=== PATIENT | female | born 1965 | race Caucasian/White ===

== ENCOUNTER 2025-02-28 14:07 | Emergency (ER) | payer OTHER, SELFPAY ==
--- NOTE | ~2025-02-28 | CT_ITS ---
EXAMINATION: CT abdomen pelvis wo con DATE: 02/28/2025 17:15 INDICATION: Flank pain. History of nephrolithiasis. TECHNIQUE: Computed tomography (CT) of the abdomen and pelvis was performed without intravenous contrast. Automated exposure control and iterative reconstruction technique were employed. The dose-length product was 1087.74 mGy-cm. COMPARISON: [facility] dated 07/14/2018. CT dated 07/14/2018. FINDINGS: Lung bases do not show acute findings. Hiatus hernia. Gallbladder is absent. Pancreas shows no acute findings. No calculi or obstruction on the left side. Mild right hydronephrosis. No stone is noted in the right ureter. No evidence of bladder calculus. No inflammatory changes in the pelvis. Significant degenerative disc disease at L5-S1 level. IMPRESSION: 1. Limited noncontrast study is not optimal to evaluate solid viscera, neoplasms and vascular structures. 2. Mild right hydronephrosis and hydroureter. No calculi are seen within the urinary tract and this time. 3. Significant degenerative disc disease at L5-S1 level. Reviewed, dictated and finalized at location T. NTEER SERVICES DIRECTOR IMPRESSION: 1. Limited noncontrast study is not optimal to evaluate solid viscera, neoplasm s and vascular structures. 2. Mild right hydronephrosis and hydroureter. No calculi are seen within the ur inary tract and this time. 3. Significant degenerative disc disease at L5-S1 level.
--- NOTE | ~2025-02-28 | XR_ITS ---
EXAMINATION: XR chest 2V DATE: 02/28/2025 15:00 INDICATION: Chest pain. TECHNIQUE: Frontal and lateral views of the chest were obtained. COMPARISON: None. FINDINGS: Moderate cardiomegaly. Significant atherosclerotic aorta. Lungs are free of acute processes. IMPRESSION: 1. No acute findings. Cardiomegaly and atherosclerotic aorta. Reviewed, dictated and finalized at location T. SIOLOGIST
--- NOTE | ~2025-02-28 | CT_ITS ---
EXAMINATION: CT angiogram chest, abdomen and pelvis with contrast: DATE: 02/28/2025. INDICATION: 59-year-old female with acute onset of chest pain. Rule out dissection. TECHNIQUE: The angiogram of chest, abdomen and pelvis with 150 cc of Omnipaque 350. Multiplanar and 3-D reconstruction obtained. Radiation dose 795 MG Y C.M. COMPARISON: CT abdomen pelvis dated 02/28/2025 without contrast. Chest x-ray dated 02/28/2025. FINDINGS: No significant acute pulmonary findings. Minimal platelike atelectasis of left lung base. No evidence of pulmonary emboli. No acute findings of thoracic aorta. Atherosclerotic changes of aortic arch. Below the diaphragm, no evidence of abdominal aortic dissection. Mild ectasia of infrarenal abdominal aorta measuring 2.5 cm in AP diameter. Significant calcific atherosclerotic changes of distal abdominal aorta and proximal iliac arteries. No evidence of aortic dissection. No evidence of small bowel obstruction. No acute findings of thoracolumbar spine. IMPRESSION: 1. No evidence of pulmonary emboli. Minimal platelike atelectasis of left lung base. 2. Atherosclerotic changes of thoracic aorta. No evidence of thoracic aortic dissection. 3. No evidence of abdominal aortic dissection. Mild ectasia of infrarenal abdominal aorta measuring 2.5 cm in AP diameter. 4. Significant calcific atherosclerotic changes of distal abdominal aorta and bilateral iliac arteries. 5 degenerative disc disease at L5-S1 level. Reviewed, dictated and finalized at location T. ETIC ACCOUNT COORDINATOR IMPRESSION: 1. No evidence of pulmonary emboli. Minimal platelike atelectasis of left lung base. 2. Atherosclerotic changes of thoracic aorta. No evidence of thoracic aortic di ssection. 3. No evidence of abdominal aortic dissection. Mild ectasia of infrarenal abdom inal aorta measuring 2.5 cm in AP diameter. 4. Significant calcific atherosclerotic changes of distal abdominal aorta and b ilateral iliac arteries. 5 degenerative disc disease at L5-S1 level.
[2025-02-28 14:07] VITALS: BP 130/74; PULSE 87; RESP 14; TEMP 36.8; O2SAT 92
--- NOTE | 2025-02-28 14:13 | ECG_ITS ---
Test Date: 2025-02-28 14:19:22 Measurements Intervals [place] Rate: 87 P: 45 PA: 154 QRS: -44 QRSD: 100 T: 84 QT: 331 QTc: 400 Interpretive Statements SINUS RHYTHM LEFT AXIS DEVIATION DELAYED PRECORDIAL R/S TRANSITION LEFT VENTRICULAR HYPERTROPHY AND ST-T CHANGE MINIMAL Q WAVES- HIGH LATERAL LEADS BASELINE ARTIFACT- I, II, III, AVR, AVL, AVF, V1 BORDERLINE ECG No previous ECG available for comparison Electronically Signed On 02-28-2025 21:37:17 VFX ARTIST by Fer Schrader D.O.
[2025-02-28 14:27] LABS: Hematocrit 41.0 % (37.0-47.0); Hemoglobin 13.2 g/dL (12.0-15.0); Immature Granulocyte Percent A 0.5 % (0-0.5); Lymphocytes Absolute Auto 2.28 K/mm3 (0.9-3.2); Mean Corpuscular HGB Conc 32.2 g/dl (32-36); Mean Corpuscular Hemoglobin 28.3 pg (26-34); Mean Corpuscular Volume 88.0 fl (80-100); Nucleated Red Blood Cells Absolute Auto 0.000 K/mm3 (0.0-0.012); Nucleated Red Blood Cells Perc 0.0 % (0.0-0.2); Platelet Count Result 168 k/mm3 (150-375); Red Blood Count 4.66 M/mm3 (4.2-5.4); White Blood Count 8.5 K/mm3 (4.5-10.0)
[2025-02-28 14:44] LABS: INR 1.0; Partial Thromboplastin Time 24.7 Seconds (22.3-36.8); Prothrombin Time 12.8 Seconds (11.1-14.7)
[2025-02-28 14:47] LABS: Alanine Aminotransferase 21 U/L (6-35); Albumin Level 4.4 g/dL (3.5-5.1); Alkaline Phosphatase 79 U/L (38-126); Anion Gap 6 mmol/L (4-12); Aspartate Amino Transferase 32 U/L (14-36); Bilirubin,Total 0.4 mg/dL (0.2-1.3); Blood Urea Nitrogen 13 mg/dL (7-17); Calcium 9.5 mg/dL (8.4-10.2); Carbon Dioxide 28 mmol/L (22-30); Chloride 103 mmol/L (98-107); Estimated CRCL calculation 76 ml/min; Estimated Glomerular Filt Rate > 60; Glucose 125 mg/dL (65-110); Lipase 76 U/L (23-300); Potassium 3.8 mmol/L (3.4-5.0); Sodium 137 mmol/L (137-145); Total Protein 7.8 g/dL (6.3-8.2)
[2025-02-28 14:54] LABS: Troponin I < 0.012 ng/mL (0.000-0.034)
--- NOTE | 2025-02-28 15:41 | ED_ITS ---
HPI - Chest Pain General Chief Complaint: Chest Pain Stated Complaint: chest pain Time Seen by Provider: 02/28/25 15:40 History of Present Illness HPI narrative: 59-year-old female presents emergency department with left-sided flank and chest pain. Patient states she has felt like this in the past when she has had a kidney stone. She has required urological intervention in the past. States was abrupt onset about 1 p.m.. No shortness of breath. States it radiates to her chest wall. Sources nausea but no vomiting. Denies any lateralizing weakness or paresthesias. Denies any known history of coronary artery disease or structural heart disease. The dorsum increased urinary frequency. States the pain is severe. Related Data Allergies Allergy/AdvReac Type Severity Reaction Status Date / Time No Known Allergies Allergy Unverified 07/14/18 22:39 Review of Systems 2 Review of Systems: All systems reviewed & are unremarkable except as noted in HPI and below Exam 2 Narrative: EXAMINATION OF ORGAN SYSTEMS/BODY AREAS: Constitutional: Vital signs per nursing GENERAL:[No acute distress, non-toxic appearing.] HEAD: Normal with no signs of head trauma. EYES: EOMI, conjunctiva normal ENT: Hearing grossly intact LUNGS: Nonlabored breathing. clear to auscultation bilaterally HEART: [Regular rate and rhythm] 2+ radial pulses brisk cap refill no murmur appreciated ABD: [Soft], [nontender to palpation] There is reproducible left flank tenderness no overlying skin changes. EXT: Normal range of motion SKIN: [No rashes or lesions.] NEURO: [Alert. No gross focal sensory or strength deficits.] PSYCH: Normal affect Course Vital Signs Vital signs: Vital Signs Temperature 36.8 C 02/28/25 14:07 Pulse Rate 87 02/28/25 14:07 Respiratory Rate 14 02/28/25 14:07 Blood Pressure 130/74 02/28/25 14:07 Pulse Oximetry 92 02/28/25 14:07 Oxygen Delivery Room Air 02/28/25 14:07 Temperature 36.8 C 02/28/25 14:07 Pulse Rate 79 02/28/25 17:30 Respiratory Rate 14 02/28/25 17:30 Blood Pressure 105/55 L 02/28/25 17:30 Pulse Oximetry 92 02/28/25 17:30 Oxygen Delivery Room Air 02/28/25 17:31 MDM Differential Diagnosis Differential Diagnosis: this is a 59-year-old female who presents with flank and chest pain. The differential is renal colic with or without obstruction versus atypical presentation of ACS versus peripheral pneumonia versus musculoskeletal etiology versus early zoster. Will obtain IV access CT abdomen pelvis without IV contrast urinalysis EKG chest x-ray multimodal pain control implant for evaluation of workup and treatment. Results re-evaluation Patient's clinical status improved. Her pain is controlled she states that this did happen before going to the CT scan without IV contrast. I suspect she perhaps passed a kidney stone however UA shows no evidence of RBCs given dissection is on the differential did obtain a CTA which was negative for dissection patient would like to go home she has been in the emergency department for extended period time her pain is improved I discussed with her that the hydronephrosis of unclear etiology could be related to a passed stone or other etiologies and she will require follow-up with her primary care doctor established urologist which she is confident she can obtain later this week. A tractor she is return immediately if she develops any new or concerning symptoms otherwise all questions answered discharged in fair condition Medical Records I have reviewed the following patient records and this information was taken into consideration when formulating the assessment and plan.: previous ER visits and previous hospitalizations Lab Data [facility] Lab Attestation statement: I personally reviewed the patient's lab results. 02/28/25 14:21 02/28/25 14:21 Labs: Lab Results 02/28/25 02/28/25 02/28/25 Range/Units 14:21 17:41 18:41 WBC 8.5 (4.5-10.0) K/mm3 RBC 4.66 (4.2-5.4) M/mm3 Hgb 13.2 (12.0-15.0) g/dL Hct 41.0 (37.0-47.0) % MCV 88.0 (80-100) fl MCH 28.3 (26-34) pg MCHC 32.2 (32-36) g/dl RDW 13.2 (11.5-14.5) % Plt Count 168 (150-375) k/mm3 MPV 10.5 H (7.4-10.4) fl Immature Gran % (Auto) 0.5 (0-0.5) % Neut % (Auto) 59.6 (45.5-73.1) % Lymph % (Auto) 27.0 (18.3-44.2) % Foster % (Auto) 9.8 H (2.6-8.5) % Eos % (Auto) 2.6 (0-4.4) % Baso % (Auto) 0.5 (0.2-1.2) % Lymph # (Auto) 2.28 (0.9-3.2) K/mm3 Foster # (Auto) 0.8 H (0.1-0.6) K/mm3 Eos # (Auto) 0.2 (0-0.3) K/mm3 Baso # (Auto) 0.0 (0.0-0.1) K/mm3 Abs Immat Gran (auto) 0.04 H (0.00-0.031) K/mm3 Absolute Neuts (auto) 5.1 (1.3-6.7) K/mm3 Absolute Nucleated RBC 0.000 (0.0-0.012) K/mm3 Nucleated RBC % 0.0 (0.0-0.2) % PT 12.8 (11.1-14.7) Seconds INR 1.0 APTT 24.7 (22.3-36.8) Seconds Sodium 137 (137-145) mmol/L Potassium 3.8 (3.4-5.0) mmol/L Chloride 103 (98-107) mmol/L Carbon Dioxide 28 (22-30) mmol/L Anion Gap 6 (4-12) mmol/L BUN 13 (7-17) mg/dL Creatinine 0.83 (0.7-1.0) mg/dL Estim Creat Clear Calc 76 ml/min Estimated GFR > 60 (59 - ) Glucose 125 H (65-110) mg/dL Calcium 9.5 (8.4-10.2) mg/dL Total Bilirubin 0.4 (0.2-1.3) mg/dL AST 32 (14-36) U/L ALT 21 (6-35) U/L Alkaline Phosphatase 79 (38-126) U/L Troponin I < 0.012 < 0.012 (0.000-0.034) ng/mL Total Protein 7.8 (6.3-8.2) g/dL Albumin 4.4 (3.5-5.1) g/dL Lipase 76 (23-300) U/L Urine Color Yellow (Yellow) Urine Appearance Cloudy H (Clear) Urine pH 6.0 (5.0-9.0) Ur Specific [place] 1.037 H (1.001-1.035) Urine Protein Negative (Negative) mg/dL Urine Glucose (UA) 3+ H (Negative) mg/dL Urine Ketones Trace H (Negative) mg/dL Ur Blood (Man) Negative (Negative) Urine Nitrate Negative (Negative) Urine Bilirubin Negative (Negative) Urine Urobilinogen 0.2 (<2.0) mg/dL Leukocyte Esterase Rfl Negative (Negative) SHABNAM/UL Urine RBC 0-2 (0-2) /hpf Urine WBC 0-5 (0-3) /hpf Ur Squamous Epith Cells Occasional (Few) /hpf Urine Bacteria None seen /hpf Urine Casts 0-2 Imaging Data Attestation: I personally reviewed and interpreted this imaging study as follows: My impression: Chest x-ray per my interpretation shows no free air no focal consolidation or pneumothorax. Radiologist's impression: ITS Impressions Chest X-Ray 02/28/25 15:01 IMPRESSION: 1. No acute findings. Cardiomegaly and atherosclerotic aorta. Abdomen/Pelvis CT 02/28/25 17:17 IMPRESSION: 1. Limited noncontrast study is not optimal to evaluate solid viscera, neoplasms and vascular structures. 2. Mild right hydronephrosis and hydroureter. No calculi are seen within the urinary tract and this time. 3. Significant degenerative disc disease at L5-S1 level. Chest/Abdomen/Pelvis CTA 02/28/25 18:14 IMPRESSION: 1. No evidence of pulmonary emboli. Minimal platelike atelectasis of left lung base. 2. Atherosclerotic changes of thoracic aorta. No evidence of thoracic aortic dissection. 3. No evidence of abdominal aortic dissection. Mild ectasia of infrarenal abdominal aorta measuring 2.5 cm in AP diameter. 4. Significant calcific atherosclerotic changes of distal abdominal aorta and bilateral iliac arteries. 5 degenerative disc disease at L5-S1 level. ECG Data EKG #1: Attestation: I personally reviewed and interpreted this ECG as follows: Interpretation: Twelve lead EKG EKG is interpreted by me shows sinus rhythm at a rate of 87 beats per minute. Left axis deviation. LVH by voltage criteria. Otherwise no evidence of ST-T segment elevation or depression. Overall impression abnormal EKG per Discharge Plan Discharge Clinical Impression: Acute flank pain, Hydronephrosis Patient Disposition: Home Condition: Improved Instructions: Flank Pain (ED) Patient Language: Kyrgyz Prescriptions: New ketorolac 10 mg tablet 10 mg PO Q8H Qty: 20 5RF Rx Instructions: maximum total duration of 5 days from all oral, intranasal, or parenteral formulations ondansetron 4 mg tablet,disintegrating 4 mg PO Q8H Qty: 14 0RF oxycodone 10 mg tablet 10 mg PO Q8H PRN (Reason: pain) Qty: 14 0RF Follow-up/Referrals: Marcela,Bryce Jimenes MD [Primary Care Provider, Unknown] Time of Disposition: 19:05
--- OUTSIDE RECORDS SUMMARY | 2025-02-28 15:57 | XMS_ITS | Clinical Summary ---
Author Organization [facility] Address [facility] [place] [address] Care Team Providers Care Vp Human Resources Name Role Phone Bryce Medrano MD Primary Care Provider [phone] Allergies No known active allergies Medications Empagliflozin-me tFORMIN HCl (SYNJARDY) 12.5-1000 MG Tab Take 1 tablet by mouth daily with breakfast. 60 tablet 10/28/2022 Active Active Problems Problem Noted Date Diagnosed Date Acute hypoxemic respiratory failure 10/26/2022 Pneumonia due to COVID-19 virus 10/26/2022 Respiratory failure with hypoxia 10/26/2022 Family History Medical History Relation Comments Lung Cancer Father Relation Status Comments Father Social History Tobacco Use Types Packs/Day Years Used Date Smoking Tobacco: Never Assessed Humiliation, Afraid, Rape, and Kick questionnair e Answer Date Recorded Within the last year, have y ou been afraid of your partner or ex-partner? No 10/26/2022 Within the last year, have y ou been humiliated or emotionally abused in other ways by your partner or ex-partner? No Within the last year, have y ou been kicked, hit, slapped, or otherwise physically hurt by your partner or ex-partner? No 10/26/2022 Within the last year, have y ou been raped or forced to have any kind of sexual activity by your partner or ex-partner? No 10/26/2022 Overall Financial Resource Strain (CARDIA) Answe r Date Recorded How hard is it for you to pa y for the very basics like food, housing, medical care, and heating? Not hard at all 10/26/2022 Hunger Vital Sign Answer Date Recorded Within the past 12 months, y ou worried that your food would run out before you got the money to buy more. Never true 10/27/19 23 Within the past 12 months, t he food you bought just didn't last and you didn't have money to get more. Never true 10/26/2022 PRAPARE - Transportation Answer Date Re corded In the past 12 months, has l ack of transportation kept you from medical appointments or from getting medications? No 10/04 In the past 12 months, has l ack of transportation kept you from meetings, work, or from getting things needed for daily living? No 10/26/2022 Housing Stability Vital Sign Answer Shane e Recorded In the last 12 months, was t here a time when you were not able to pay the mortgage or rent on time? No 10/26/2022 In the last 12 months, how many places have you lived? 1 10/26/2022 In the last 12 months, was t here a time when you did not have a steady place to sleep or slept in a usp (including now)? No 10/26/2022 Comments Unknown Sex and Gender Information Value Date Recorded Sex Assigned at Not on file Legal Sex Female 4:15 PM CDT Gender Identity Not on file Sexual Orientation Not on file Last Filed Vital Signs Vital Sign Reading Time Taken Comments Blood Pressure 133/76 10/28/2022 8:32 AM CDT Pulse 62 10/28/2022 8:32 AM CDT Temperature 36.5 C (97.7 F) 10/28/2022 8:32 AM CDT Respiratory Rate 15 10/28/2022 8:32 AM CDT Oxygen Saturation 96% 10/28/2022 8:32 AM CDT Inhaled Oxygen Concentration - - Weight 98.7 kg (217 lb 9.5 oz) 10/28/2022 5:53 A M CDT Height 166.4 cm (5' 5.5) 10/26/2022 4:00 AM CDT Body Mass Index 35.66 10/26/2022 4:00 AM CDT Plan of Treatment Health Maintenance Due Date Last Done Comments Cervical Cancer Screening Pap Smear (Age 30 to 64) Every 3 Years 1966 Colorectal Cancer Screening Colonoscopy (10 Years) 1966 Annual Physical 1969 Hepatitis C 1984 DTaP, Tdap and Td Vaccines (1 - Tdap) 1985 Hepatitis B Vaccines (1 of 3 - 19+ 3-dose series) 1985 Cervical Cancer Screening Pap with HPV Testing (Age 30 to 64) Every 5 Years 1996 Cervical Cancer Screening with HPV 1996 Mammogram Screening 2006 Zoster Vaccines (1 of 2) 2016 COVID-19 Vaccine (3 - 2024- season) 2024 03/18/2021, 05/16/2020 Influenza Adult (#1) 2024 12/28/2021, 12/03/2021, 12/18/2020, Additional history exists Pneumococcal Vaccine: 50+ Years Completed 01/06/2022 Hepatitis A Vaccines Aged Out No long er eligible based on patient's age to complete this topic Meningococcal B Vaccine Aged Out No l onger eligible based on patient's age to complete this topic Meningococcal Vaccine Aged Out No quiana dolores eligible based on patient's age to complete this topic RSV Immunizations Under 20 Months Aged Out No longer eligible based on patient's age to complete this topic Goals Goal Patient Goal Type Associated Problems Recent Progress Patient-Stated? Author Health - patient able to perform ADLs independently Lifestyle No Zandra Coyle, RN Insurance [employer] Advance Directives * Full Code (Latest Code Status on File) Date Activated Date Inactivated Comments 10/26/2022 4:15 AM 10/28/2022 3:15 PM Care Teams Vp Human Resources Relationship Specialty Start Date End Date Bryce Medrano MD [facility] - General 10/07/12
--- OUTSIDE RECORDS SUMMARY | 2025-02-28 15:57 | XMS_ITS | Encounter Summary ---
Author Organization [facility] Address [facility] [place] [address] Care Team Providers Care Member Services Representative Name Role Phone Bryce Medrano MD Primary Care Provider [phone] Encounter Details Date Type Department Care Team (Late st Contact Info) Description 05/24/2018 Abstract [facility] [address] [place] [address] Abstract, Doc [facility] Social History Tobacco Use Types Packs/Day Years Used Date Smoking Tobacco: Never Assessed Comments Unknown Sex and Gender Information Value Date Recorded Sex Assigned at Not on file Legal Sex Female 4:15 PM CDT Gender Identity Not on file Sexual Orientation Not on file documented as of this encounter Plan of Treatment Not on file documented as of this encounter Visit Diagnoses Not on filedocumented in this encounter Additional Health Concerns Infection Onset Date Last Indicated Resolved Time COVID-19 Patient Reported Po sitive Comment: 10/25/2022 10/26/2022 11/15/2022 12:32 AM CDT documented as of this encounter Care Teams Member Services Representative Relationship Specialty Start Date End Date Bryce Medrano MD PCP - General 10/07/12 documented as of this encounter
--- OUTSIDE RECORDS SUMMARY | 2025-02-28 15:57 | XMS_ITS | Clinical Summary ---
Author Organization [facility] Address [address] [place] [address] Care Team Providers Care Bag Hanger Name Role Phone Fady Irizarry DO Primary Care Provider Source Comments [facility],non-owned Affiliates and Associated Physician Practices is amultiple site organization consisting of ambulatory clinics and hospital sitesin [place], [place] and [place]. This disclosure is being madepursuant to the Care Everywhere program and may not contain all information available regarding this patient. Last updated 17.[facility] Allergies Active Allergy Reactions Criticality Noted Date Comments Morphine Nausea and/or Vomiting 10/21/2018 Varenicline Urticaria Medium 08/06/2018 Medications * Be aware that medications may not be up to date on this document. Alwaysverify current medications with the patient. ALPRAZolam (XANAX) 1 MG tablet Take 1 mg by mouth as needed 9 Active folic acid (FOLVITE) 1 MG tablet Take 1 tablet by mouth once daily 4 9 Active lidocaine (LIDODERM) 5 % patch as needed 0 9 Active tiotropium (SPIRIVA RESPIMAT) 2.5 MCG/ACT inhaler Inhale 2 puffs by mouth once daily 1 Inhaler 9 Active albuterol HFA (PROVENTIL;VENT DONNA;PROAIR) 108 (90 Base) MCG/ACT inhaler Inhale 2 puffs by mouth every 4 hours as needed for Wheezing 1 Inhaler 3 9 Active naproxen sodium (ALEVE) 220 MG tablet Take 220 mg by mouth 2 times daily Active raNITIdine HCl (ZANTAC 75 PO) Take 150 mg by mouth as needed Active Oxygen Use 2 L nightly as needed Active docusate sodium (COLACE) 100 MG capsule Take 1 capsule by mouth once daily Please take until you stop taking pain medication 30 capsule 1 9 Active oxybutynin (DITROPAN) 5 MG tablet Take 1 tablet by mouth 3 times daily as needed (Bladder pain/spaspms, urinary urgency, frequency) 60 tablet 1 9 Active oxyCODONE, immediate release, (ROXICODONE) 5 MG tablet Take 1 tablet by mouth every 6 hours as needed for Pain 10 tablet 9 Active tamsulosin (FLOMAX) 0.4 MG capsule Take 1 capsule by mouth once daily At the same time every day after a meal. 30 capsule 9 Active ondansetron, disintegrating, (ZOFRAN ODT) 4 MG tablet Take 1 tablet by mouth every 6 hours as needed for Nausea/Vomiting Allow tablet to dissolve on the tongue 20 tablet 1 9 Active traZODone (DESYREL) 100 MG tablet TAKE 2 TABLETS BY MOUTH EVERY NIGHT AT BEDTIME 9 Active Active Problems Problem Noted Date Diagnosed Date Tobacco abuse 09/12/2018 COPD (chronic obstructive pulmonary disease) 01/2019 Inflammatory bowel disease Family History Medical History Relation Name Comments Asthma Brother Cancer - Lung Father CAD (Coronary Artery Disease) Mother Relation Name Status Comments Brother Father Mother Social History Tobacco Use Types Packs/Day Years Used Date Smoking Tobacco: Every Day Cigarettes 1 40 Started: 03/05/1985 Smokeless Tobacco: Never Tobacco Cessation:Ready to Q uit: No Alcohol Use Standard Drinks/Week Comments No 0 (1 standard drink = 0.6 oz pur e alcohol) Comments No Sex and Gender Information Value Date Recorded Sex Assigned at Not on file 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 Gender Identity Not on file Sexual Orientation Not on file Last Filed Vital Signs Vital Sign Reading Time Taken Comments Blood Pressure 105/74 12/03/2018 8:36 AM CDT Pulse 76 12/03/2018 8:36 AM CDT Temperature 36.4 C (97.5 F) 12/03/2018 8:36 AM CDT Respiratory Rate 15 10/21/2018 5:32 PM CDT Oxygen Saturation 97% 12/03/2018 8:36 AM CDT Inhaled Oxygen Concentration - - Weight 98 kg (216 lb) 12/03/2018 8:36 AM CDT Height 165.1 cm (5' 5) 12/03/2018 8:36 AM CDT Body Mass Index 35.94 12/03/2018 8:36 AM CDT Plan of Treatment Health Maintenance Due Date Last Done Comments COLOGUARD (AGES 45-75) - COL ON CA SCREENING 1966 COLON MONITORING 1966 COLONOSCOPY - COLON CA SCREENING 1966 CT COLONOGRAPHY - COLON CA SCREENING 1966 Colorectal Cancer Screening 1966 FIT - COLON CA SCREENING 1966 FLEX SIG - COLON CA SCREENING 1966 LIPID TESTING 1966 MAMMOGRAM 1966 HIV SCREENING 1981 HEPATITIS C SCREENING 05/25/1984 DTAP/TDAP/TD VACCINES (1 - Tdap) 1985 HEPATITIS B VACCINE (1 of 3 - 19+ 3-dose series) 1985 PNEUMOCOCCAL VACCINE 50+ (1 of 1 - PCV) 2016 ZOSTER VACCINE (1 of 2) 2016 SCREENING FOR DIABETES 10/09/2021 10/09/2018 DEPRESSION SCREENING 03/05/2024 COVID-19 VACCINE ( - 2024-2 6 season) 2024 INFLUENZA VACCINE (#1) 2024 HIB VACCINE Aged Out No longer eligi ble based on patient's age to complete this topic HPV VACCINE Aged Out No longer eligi ble based on patient's age to complete this topic MENINGOCOCCAL (Group B) VACC INE SHARED DECISION-MAKING Aged Out No longer eligibl e based on patient's age to complete this topic MENINGOCOCCAL GROUPS A/C/Y/W VACCINE Aged Out No longer eligible b ased on patient's age to complete this topic Medical Devices Implanted Type Area Apartment Community Assistant Manager Device Identifier Shelf Expiration Date Model / Serial / Lot Stent Uret 6fr 24cm Pgtl Crv Tpr Tip - Sref: [id number] Implanted:Qty: 1 on 10/21/2018 by Justin Amaya MD at [facility] [employer] 07/27/2021 [id number] / REF: [id number] / [id number] Stent Uret 6fr 24cm Pgtl Crv Tpr Tip - Sref: [id number] Implanted:Qty: 1 on 10/21/2018 by Justin Amaya MD at [facility] [employer] 06/16/2021 [id number] / REF: [id number] / [id number] Procedures Procedure Name Priority Date/Time Associated Diagnosis Comments COMPREHENSIVE METABOLIC PANEL Routine 10/09/2018 2:42 PM CDT Nephrolithiasis Pre-op testing from Last 3 Months or Most Recently Relevant to Health Maintenance Results * (ABNORMAL) COMPREHENSIVE METABOLIC PANEL (10/09/2018 2:42 PM CDT) BUN 9 7 - 26 mg/dL 10/09/2018 3:23 PM [facility] Creatinine 0.8 0.6 - 1.2 mg/dL 10/09/2018 3:23 PM [facility] Sodium 140 136 - 145 mmol/L 10/09/2018 3:23 PM [facility] Potassium 4.0 3.5 - 4.5 mmol/L 10/09/2018 3:23 PM [facility] Chloride 104 98 - 107 mmol/L 10/09/2018 3:23 PM [facility] CO2 23 22 - 29 mmol/L 10/09/2018 3:23 PM [facility] Glucose 105 70 - 115 mg/dL 10/09/2018 3:23 PM [facility] Calcium 9.2 8.4 - 10.2 mg/dL 10/09/2018 3:23 PM [facility] Protein Total 7.4 6.0 - 8.3 g/dL 10/09/2018 3:23 PM [facility] Albumin 3.6 3.4 - 5.0 g/dL 10/09/2018 3:23 PM [facility] Bilirubin Total 0.3 0.2 - 1.2 mg/dL 10/09/2018 3:23 PM [facility] Alkaline Phosphatase 115 40 - 150 Units/L 10/09/2018 3:23 PM [facility] ALT 14 0 - 55 Units/L 10/09/2018 3:23 PM CDT [facility] AST 17 5 - 34 Units/L 10/09/2018 3:23 PM T [facility] Anion Gap 17 8 - 18 10/09/2018 3:23 PM [facility] BUN/Creatinine Ratio 11 7 - 23 10/09/2018 3:23 PM T [facility] Osmolality Calculated 289 270 - 300 mOsm/kg 10/09/2018 3:23 PM T [facility] Albumin/Globulin Ratio 0.9(L) 1.1 - 2.3 10/09/2018 3:23 PM T [facility] eGFR >60 >60 mL/min/1.7 3 m2 10/09/2018 3:23 PM [facility] Blood BLOOD SPECIMEN / Unknown Lab Venipuncture / Unknown 10/09/2018 2:42 PM CDT 10/09/2018 2:52 PM CDT Inessa Gallegos DO LAB - CHEMISTRY ORDERABLES Final Result [address] [phone] from Last 3 Months or Most Recently Relevant to Health Maintenance Insurance [employer] MEDICARE MEDICARE Advance Directives * Full Code (Latest Code Status on File) Date Activated Date Inactivated Comments 10/21/2018 7:47 AM 10/21/2018 7:12 PM Care Teams Bag Hanger Relationship Specialty Start Date End Date Fady Irizarry DO [address] [address] PCP - General 11/27/18
--- OUTSIDE RECORDS SUMMARY | 2025-02-28 15:57 | XMS_ITS | Patient Health Record ---
Author Organization [facility] Address [address] [place], [place] [id number] Care Team Providers Care Logistics Management Specialist Name Role Phone KINJAL QUIÑONES Unavailable [phone] Bryce Medrano Unavailable Unavailable Allergies No Known Allergies Reason For Referral No Information Medications Medication SIG (Take, Route, Frequency, Duration) Notes Start Date End Date Status alprazolam 1 MG Oral Tablet [Xanax] ORAL alprazolam 1 MG Oral Tablet [Xanax]Original Medicationalprazolam 1 MG Oral Tablet [Xanax] *Reorder from [facility] for eRx and Interaction Alerts* 03/19/2015 Active trazodone hydrochloride 50 MG Oral Tablet ORAL trazodone hydrochloride 50 MG Oral TabletOriginal Medicationtrazodone hydrochloride 50 MG Oral Tablet *Reorder from [facility]pos for eRx and Interaction Alerts* 03/19/2015 Active Social History Social History Additional Details Category Social Info Options Details Migrated Social History Migrated Social History Smoking Status : Current every day smoker , History of tobacco use : Current every day smoker Plan Of Treatment No Information Insurance Providers Payer Name Payer Address Payer Phone Subscriber Number Group Number Insured Name Patient Relationship to Insured Coverage Start Date Coverage End Date [employer]. [address] [place] [address] [id number] RICHY HOLLINGSWORTH Self - patient is the insured
--- OUTSIDE RECORDS SUMMARY | 2025-02-28 15:57 | XMS_ITS | Encounter Summary ---
Author Organization [facility] Address [address] [facility] [place] [address] Care Team Providers Care Bathing Suit Maker Name Role Phone Fady Irizarry DO Primary Care Provider Encounter Details Date Type Department Care Team (Late st Contact Info) Description 04/19/2020 Lab Requisition [facility] D[facility] Lab [address] [facility] [facility] [place] [id number] Nav Shen MD [address] [facility] [address] [facility] [address] [place] [address] Social History Tobacco Use Types Packs/Day Years Used Date Smoking Tobacco: Every Day Cigarettes 1 40 Started: 03/05/1985 Smokeless Tobacco: Never Alcohol Use Standard Drinks/Week Comments No 0 (1 standard drink = 0.6 oz pur e alcohol) Comments No Sex and Gender Information Value Date Recorded Sex Assigned at Not on file Legal Sex Female 5:44 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 Gender Identity Not on file Sexual Orientation Not on file documented as of this encounter Plan of Treatment Not on file documented as of this encounter Procedures Procedure Name Priority Date/Time Associated Diagnosis Comments DERMATOPATHOLOGY Routine 04/16/2020 12:0 0 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 documented in this encounter Results * DERMATOPATHOLOGY (04/16/2020 12:00 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) Case Report Dermatopathology Report Case: [id number] Authorizing Provider: Nav Shen MD Collected: 04/16/2020 12:00 AM Ordering Location: [facility] Lab Received: 04/19/2020 07:03 AM Pathologist: Emily Higuera MD Specimen: Skin, frontal scalp 3:42 PM [facility] DERMATOPATHOLOGY LABORATORY Final Diagnosis Specimen A. SKIN, frontal scalp: CHRONIC PERIFOLLICULITIS (L73.8) DERMAL FIBROSIS (L90.5) (see microscopic description and comment) 3:42 PM [facility] DERMATOPATHOLOGY LABORATORY at [address] [facility] Clinical History Frontal fibrosing alopecia vs lupus vs other. Path# [id number]. 3:42 PM [facility] DERMATOPATHOLOGY [facility]ORATORY Gross Description Specimen A: Received is one formalin filled container labeled with the patient's name and designated frontal scalp. The specimen consists of a punch biopsy measuring [id number]. Jar 0. 3:42 PM [facility] DERMATOPATHOLOGY [facility]ORATORY Microscopic Description Specimen A. SKIN, frontal scalp: Sections show a perifollicular lymphohistiocytic infiltrate. The epidermis is unremarkable. There is focal dermal fibrosis with decreased hair follicles. Periodic acid-Kathrin (PAS) stain fails to highlight fungal elements in the available sections and does not show an thickened basement membrane zone. 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 Clinicopathologic correlation and consideration for performing a punch biopsy to submit for alopecia protocol (horizontal sections). 3:42 PM [facility] DERMATOPATHOLOGY [facility]ORATORY Disclaimer An external and internal positive and negative controls are appropriate for the histochemical, immunohistochemical and immunofluorescence stain(s) in this case (if any), except where stated explicitly. The performance characteristics of the stain(s) cited in this report were developed and its performance characteristic determined by the Dermatopathology Laboratory at [facility], directed by Dr. Marco Antonio Higuera. These tests need not be, and therefore are not, approved by the [place] Food and Drug Administration. The tests are used for clinical purposes. Billing Codes Specimen Charges Stain Charges 03411 1 [id number] 1 3:42 PM [facility] DERMATOPATHOLOGY LABORATORY Embedded Images 3:42 PM [facility] DERMATOPATHOLOGY LABORATORY Pathology/Cytolog y TISSUE SPECIMEN FROM SKIN / Unknown 04/16/2020 04/19/2020 7:03 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 us Nav Shen MD LAB - PATHOLOGY/CYTOLOGY ORDER CECE Final Result DERMATOPATHOLOGY LABORATORY [facility] - Department of Dermatology [facility] Medicine [address] [place] [address], [address] [phone] documented in this encounter Visit Diagnoses Not on filedocumented in this encounter Care Teams Bathing Suit Maker Relationship Specialty Start Date End Date Fady Irizarry DO [address] [facility] [address] [place] [address] PCP - General 11/27/18 documented as of this encounter
--- OUTSIDE RECORDS SUMMARY | 2025-02-28 15:57 | XMS_ITS | Clinical Summary ---
Author Organization [facility] Address [address] [place] [address] Care Team Providers Care Plateman Name Role Phone Bryce Medrano MD Primary Care Provider [phone] Jeremy Slater MD Unavailable Bertha Bailey RN Unavailable [phone] Bing Ozuna RN Unavailable [phone] Eliot Sparks Unavailable Unavailable Allergies Active Allergy Reactions Criticality Noted Date Comments Morphine Nausea & Vomiting Low 10/21/2018 nausea and vomiting Varenicline Hives,Urticaria,Rash Medium 08/06/2018 RASH/HIVES/BREATHING DIFFICULTY Medications blood-glucose meter (Blood Glucose Monitoring) kitIndications:Ty pe 2 diabetes mellitus without complication, without long-term current use of insulin (HCC) 1 each daily 1 kit 021 Active ipratropium-albut Lizzette (DUO-NEB) 0.5-2.5 mg/3 mL nebulizer solution TAKE 3 ML BY NEBULIZATION EVERY 6 (SIX) HOURS NEEDED FOR WHEEZING 360 mL 022 Active albuterol HFA (PROVENTIL HFA,VENTOLIN HFA,PROAIR HFA) 90 mcg/actuation inhalerIndication s:Chronic obstructive pulmonary disease, unspecified COPD type ([facility]) INHALE 2 PUFFS EVERY 8 (EIGHT) HOURS NEEDED FOR WHEEZING 18 each 022 Active valACYclovir (VALTREX) 1 gram tablet Take 1 tablet (1,000 mg total) by mouth daily 023 Active Contour Next Test Strips stripIndications: Type 2 diabetes mellitus without complication, without long-term current use of insulin ([facility]) USE TO CHECK BLOOD SUGAR DAILY 100 strip 3 024 Active ondansetron ODT (ZOFRAN-ODT) 4 mg disintegrating tablet Take 1 tablet (4 mg total) by mouth every 8 (eight) hours as needed for nausea or vomiting 20 tablet 024 Active lancets (Microlet Lancet) miscIndications:T ype 2 diabetes mellitus without complication, without long-term current use of insulin ([facility]) USE TO CHECK BLOOD SUGAR DAILY. E11.9 100 each 3 025 Active glimepiride (AMARYL) 1 mg tabletIndications :Type 2 diabetes mellitus with hyperglycemia, without long-term current use of insulin ([facility]) TAKE 1 TABLET BY MOUTH DAILY BEFORE BREAKFAST. 90 tablet 1 Active ALPRAZolam (XANAX) 1 mg tabletIndications :[place] (generalized anxiety disorder) Take 1 tablet (1 mg total) by mouth nightly as needed for anxiety 30 tablet 5 025 Active spironolactone (ALDACTONE) 100 mg tablet Take 1 tablet (100 mg total) by mouth daily 90 tablet 3 025 Active traZODone (DESYREL) 100 mg tablet Take 1 tablet (100 mg total) by mouth nightly 90 tablet 025 Active metFORMIN (GLUCOPHAGE) 1,000 mg tabletIndications :Type 2 diabetes mellitus without complication, without long-term current use of insulin ([facility]) Take 1 tablet (1,000 mg total) by mouth daily with breakfast 180 tablet 3 025 Active rosuvastatin (CRESTOR) 20 mg tablet Take 1 tablet (20 mg total) by mouth daily 30 tablet 11 025 2025 Active empagliflozin (JARDIANCE) 10 mg tablet Take 1 tablet (10 mg total) by mouth daily 90 tablet 2 Active nitroglycerin (NITROSTAT) 0.[address] 1 tablet (0.4 mg total) under the tongue every 5 (five) minutes as needed for chest pain May repeat dose q 5 min, up to 3 doses total 90 tablet 2 025 2025 Active rosuvastatin (CRESTOR) 5 mg tablet Take 1 tablet (5 mg total) by mouth daily 90 tablet 3 025 2024 Discontinued Active Problems Problem Noted Date Diagnosed Date Hyperlipidemia 02/18/2025 Assessment & Plan (02/18/2025 3:43 PM RAVELER): LDL 76 in September - increase crestor to 20 mg daily. Lp (a) today. Other chest pain 02/18/2025 Assessment & Plan (02/18/2025 3:45 PM RAVELER): With some typical and atypical findings. Significant family history, HLD, tobacco abuse and DMII. CCTA. Start jardiance 10 mg daily, increase Crestor to 20 mg daily. EKG with no acute changes. Lp (a).Encouraged tobacco cessation. Engages in vaping 06/30/2024 BMI 34.0-34.9,adult 06/30/2024 Severe obesity 06/04/2024 Type 2 diabetes mellitus wit hout complication, without long-term current use of insulin 04/22/2021 [place]LANDO (generalized anxiety disorder) 04/22/2021 Alopecia areata 03/19/2020 Other chest pain 01/08/2020 Restrictive lung disease 11/27/2019 Psychophysiological insomnia 11/27/2019 Nocturnal hypoxemia 11/27/2019 Renal stones 08/06/2018 COPD (chronic obstructive pulmonary disease) 04/2016 Nicotine dependence 11/26/2015 Gastroesophageal reflux disease 12/25/2011 Crohn's disease without complication Overview (11/30/2020): Crohn's disease - (Added by TW Conv) Resolved Problems Problem Noted Date Diagnosed Date Resolved Date Leg swelling 05/14/2020 04/22/2021 Abnormal CXR 01/08/2020 04/22/2021 Fever 01/08/2020 04/22/2021 History of pneumonia 11/27/2019 022 Pneumonia due to infectious organism 09/23/2019 11/30/2020 Encounter for Medicare annual wellness exam 02/02/2019 04/22/2021 IFG (impaired fasting glucose) 11/26/2015 01/06/2022 Anxiety 05/21/2015 01/06/2022 Encounters Date Type Department Care Team Description 02/20/2025 Results Follow-Up [facility] [address] [facility] [address] [place] [address] [place] [address] Elise Art NP Lipoprotein a (LPa) 02/18/2025 12:15 PM RAVELER Lab [facility] [address] [place] [address] Chest pain, unspecified type 02/18/2025 11:00 AM RAVELER Office Visit [facility] Cardiology [address] [facility] 8[address] [place] [address] [place] [address] Jeremy Slater MD Chest pain, unspecified type (Primary Dx); Hyperlipidemia, unspecified hyperlipidemia type; Other chest pain 02/12/[address] [facility] Scheduling [address] [place] [address] Aiden Wilkins from Last 3 Months Immunizations Immunization Administration Dates Next Due Influenza, Quadrivalent, Anaid l Culture-based MDCK, Preservative Free, Antibiotic Free, Intramuscular 12/28/2021 Influenza, Quadrivalent, Spl it, Intramuscular 12/20/2017 Influenza, Quadrivalent, Spl it, Preservative Free, Intramuscular 01/15/2023,11/28/2019,12/11/2018,12/28 Influenza, Trivalent, IM (MDV) 12/08/2020,2016 Influenza, Trivalent, Preser vative Free, Intramuscular 01/21/2024,12/07/2016 Influenza, Unspecified 12/03/2021,12/18/2020 Pneumococcal Conjugate Pcv20 01/06/2022 Surgical History Surgery Date Site/Laterality Comments IA DELIVERY ONLY Section - (Added by TW Conv) IA TOTAL ABDOMINAL HYSTERECT W/WO RMVL TUBE OVARY Hysterectomy - (Added by TW Conv) IA ARTHROSCOPY KNEE DIAGNOST IC W/WO SYNOVIAL BX SPX Arthroscopy Knee - (Added by TW Conv) ESOPHAGOGASTRODUODENOSCOPY Diagnostic Esophagogastroduodenoscopy - (Added by TW Conv) ESOPHAGOSCOPY Diagnostic Esophagoscopy Transoral Flexible With Biopsy - (Added by TW Conv) IA CHOLECYSTECTOMY Cholecystectomy - (Added by TW Conv) Medical History Medical History Date Comments Reflux esophagitis Chronic Reflu x Esophagitis - (Added by TW Conv) Anxiety disorder Anxiety - (Adde d by TW Conv) Obstructive sleep apnea Obstruct heaven sleep apnea - has CPAP (Added by TW Conv) Blakely's esophagus without dysplasia Blakely's esophagus - (Added by TW Conv) Personal history of other di seases of the digestive system History of esophagitis - (Ad ded by TW Conv) Pulmonary emphysema Emphysema - (Added by TW Conv) Personal history of other di seases of the digestive system History of hiatal hernia - ( Added by TW Conv) Crohn's disease without comp lication (HCC) Crohn's disease - (Added by TW Conv) Pneumonia Asthma Family History Medical History Relation Name Comments Heart disease Brother 1 Atrial fibrillation Brother 2 Heart attack Father Lung cancer Father Heart attack Mother Crohn's disease Other 1 Crohn's Dise ase - mom ? had this but was not formally diagnosed (Added by TW Conv) Heart attack Other 2 Acute Myocardia l Infarction - mom and brother (Added by TW Conv) Heart failure Other 3 Congestive Hea rt Failure - dad (Added by TW Conv) Lung cancer Other 4 Malignant Neopl asm Bronchus and Lung - dad who smoked (Added by TW Conv) No Known Problems Sister 2 Relation Name Status Comments Brother 1 Alive Brother 2 Father Maternal Grandfather Maternal Grandmother Mother Other 1 Other 2 Other 3 Other 4 Paternal Grandfather Paternal Grandmother Sister 2 Alive Social History Tobacco Use Types Packs/Day Years Used Date Smoking Tobacco: Former Cigarettes 1 40 Vaping Smokeless Tobacco: Never Tobacco Cessation:Counseling Given: Not Answered Alcohol Use Standard Drinks/Week Comments Not Currently 0 (1 standard drink = 0.6 oz pur e alcohol) AUDIT-C Answer Date Recorded Q1: How often do you have a drink containing alcohol? Never 09/01/2024 Q2: How many drinks containi ng alcohol do you have on a typical day when you are drinking? Patient does not drink Q3: How often do you have si x or more drinks on one occasion? Never 09/01/2024 PHQ-2 Answer Date Recorded PHQ-2 Total Score (If total score is 3 or more points, staff should administer the PHQ-9) 0 09/01/2024 Personal Safety Answer Date Recorded Have you ever been in or are you currently in a harmful physical or emotional relationship or is someone making you feel afraid or unsafe? Denies 11/04/2022 Comments No Sex and Gender Information Value Date Recorded Sex Assigned at Not on file Legal Sex Female 12:30 PM RAVELER Gender Identity Not on file Sexual Orientation Not on file Obstetrics History Para Term AB IAB SAB Ectopic Multiple Livin g Live Births 3 3 3 Date Outcome GA Total Labor Labor/2nd/3rd Weight Sex Type Anes PTL Shruthi A1 A5 Name Clin Term Term Term Last Filed Vital Signs Vital Sign Reading Time Taken Comments Blood Pressure 119/81 02/18/2025 11:20 AM RAVELER Pulse 86 02/18/2025 11:20 AM RAVELER Temperature 36.5 C (97.7 F) 09/01/2024 3:06 PM CDT Respiratory Rate 20 09/01/2024 3:06 PM CDT Oxygen Saturation 94% 02/18/2025 11:20 AM RAVELER Inhaled Oxygen Concentration - - Weight 95.7 kg (211 lb) 02/18/2025 11:20 AM RAVELER Height 166.4 cm (5' 5.5) 02/18/2025 11:20 AM CS T Body Mass Index 34.58 02/18/2025 11:20 AM RAVELER Plan of Treatment Health Maintenance Due Date Last Done Comments Hepatitis C Screening 1966 DTaP/Tdap/Td Vaccine (1 - Tdap) 1977 Hepatitis B Screening 1984 Colon Cancer Screening-Colonoscopy 08/26/2014 08/26/2004 Zoster Vaccine (1 of 2) 2016 Foot Exam 01/16/2024 01/15/2023, 0510/2022, 01/06/2022 Regular Well Visit/Exam 18-64 01/16/2024, 11/30/2020, 07/31/2019, Additional history exists Covid-19 Vaccine (3 - 2024-2 6 season) 2024 03/18/2021, 05/16/2020 Influenza Vaccine (#1) 2024 , 01/15/2023, 12/28/2021, Additional history exists Breast Cancer Screening-Mammogram 11/20/2024 11/21/2023, 10/02/2022, 01/18/2022, Additional history exists Hemoglobin A1C 02/28/2025 08/29/2024, 04/0 04/2024, 01/11/2024, Additional history exists Albumin Creatinine Ratio, Urine 06/04/2025 06/04/2024, 01/12/2023, 11/20/2022 Lipid Panel 08/29/2025 08/29/2024, 110 10/2023, 01/12/2023, Additional history exists eGFR 08/29/2025 08/29/2024, 11/0 10/2023, 05/17/2023, Additional history exists Depression Screening 09/01/2025 09/01/2024, 06/04/2024, 08/13/2023, Additional history exists Dilated Eye Exam 07/09/2026 07/09/2024, , 06/21/2022, Additional history exists Colon Cancer Screening-CT Colonography Discontinued 08/26/2004 Colon Cancer Screening-DNA Stool Discontinued 08/27/19 Colon Cancer Screening-FIT Discontinued 08/26/2004 Colon Cancer Screening-Sigmoidoscopy Discontinued 08/26/2004 Pneumococcal vaccine <65 Completed 01/06/2022 Procedures Procedure Name Priority Date/Time Associated Diagnosis Comments LIPOPROTEIN A (LPA) Routine 02/18/2025 12:11 PM RAVELER Chest pain, unspecified type COMPREHENSIVE METABOLIC PANEL Routine 08/29/2024 10:47 AM CDT Type 2 diabetes mellitus without complication, without long-term current use of insulin (HCC) Mixed hyperlipidemia HEMOGLOBIN A1C Routine 08/29/2024 10:47 AM CDT Type 2 diabetes mellitus without complication, without long-term current use of insulin (HCC) LIPID PANEL Routine 08/29/2024 10:47 AM CDT Mixed hyperlipidemia DIABETIC EYE EXAM Routine 07/09/2024 ALBUMIN CREATININE RATIO, URINE Routine 06/04/2024 2:28 PM CDT Type 2 diabetes mellitus with hyperglycemia, without long-term current use of insulin (HCC) DIAGNOSTIC MAMMOGRAM BILATERAL W RAFITA Schedule Routine, Read Routine (OP Routine) 11/21/2023 11:00 AM CDT Mammogram abnormal COLONOSCOPY Routine 08/26/2004 from Last 3 Months or Most Recently Relevant to Health Maintenance Results * Lipoprotein a (LPa) (02/18/2025 12:11 PM RAVELER) Lipoprotein A <7 <75 nmol/L [facility] Comment: ADDITIONAL INFORMATION Please notice that Lp(a) values are reported in molar units (nmol/L). These units are recommended by professional society guidelines and expert opinion statements. Measured results and risk thresholds are higher than those generated using mass units (mg/dL). Cardiovascular risk increases starting at 75 nmol/L. Lp(a) >=125 nmol/L is considered a risk enhancing factor by the [place] [employer]. Test Performed by: [place] [address] Felt Dyeing Machine Tender: Patricia Delcid Ph.D.; CLIA# [id number] Blood 02/18/2025 12:1 1 PM RAVELER 02/18/2025 2:43 PM RAVELER us Elise Art WRECKER OPERATOR LAB BLOOD ORDERABLES Final Result [facility] Department [place] [address] [facility] * (ABNORMAL) Hemoglobin A1c (08/29/2024 10:47 AM CDT) Hgb A1C 7.6(H) <5.7 % of total Hgb [facility] Comment: For someone without known diabetes, a hemoglobin A1c value of 6.5% or greater indicates that they may have diabetes and this should be confirmed with a follow-up test. For someone with known diabetes, a value <7% indicates that their diabetes is well controlled and a value greater than or equal to 7% indicates suboptimal control. A1c targets should be individualized based on duration of diabetes, age, comorbid conditions, and other considerations. Currently, no consensus exists regarding use of hemoglobin A1c for diagnosis of diabetes for children. Blood 08/29/2024 10:4 7 AM CDT 08/29/2024 10:48 AM CDT Narrative [facility] - 08/30/2024 5:18 AM CDT FASTING:YES FASTING: YES Bryce Medrano MD LAB BLOOD ORDERABLES Final Re sult [facility] [address] [place] [address] * (ABNORMAL) Lipid panel (08/29/2024 10:47 AM CDT) Cholesterol 156 <200 mg/dL [facility] HDL 52 > OR = 50 mg/dL [facility] Triglycerides 180(H) <150 mg/dL [facility] LDL 76 mg/dL (calc) [facility] Comment: Reference range: <100 Desirable range <100 mg/dL for primary prevention; <70 mg/dL for patients with CHD or diabetic patients with > or = 2 CHD risk factors. LDL-C is now calculated using the Kris-Martin calculation, which is a validated novel method providing better accuracy than the Friedewald equation in the estimation of LDL-C. Kris SS et al. MLII. 2013;310(19): 8899-9773 (http://education.SUPR.DutyCalculator/faq/MWD667) Chol/HDL ratio 3.0 <5.0 (calc) [facility] Non-HDL, (LDL+VLDL) 104 <130 mg/dL (calc) [facility] Comment: For patients with diabetes plus 1 major ASCVD risk factor, treating to a non-HDL-C goal of <100 mg/dL (LDL-C of <70 mg/dL) is considered a therapeutic option. Blood 08/29/2024 10:4 7 AM CDT 08/29/2024 10:48 AM CDT Narrative [facility] - 08/30/2024 5:18 AM CDT FASTING:YES FASTING: YES us Bryce Medrano MD LAB BLOOD ORDERABLES Final Re sult [facility] [address] [address] * (ABNORMAL) Comprehensive metabolic panel (08/29/2024 10:47 AM CDT) Glucose 148(H) 65 - 99 mg/dL [facility] Comment: Fasting reference interval For someone without known diabetes, a glucose value >125 mg/dL indicates that they may have diabetes and this should be confirmed with a follow-up test. BUN 8 7 - 25 mg/dL [facility] Creatinine 0.76 0.50 - 1.03 mg/dL [facility] eGFR 91 > OR = 60 mL/min/1.7 3m2 [facility] BUN/creat ratio SEE NOTE: 6 - 22 (calc) [facility] Comment: Not Reported: BUN and Creatinine are within reference range. Sodium 141 135 - 146 mmol/L [facility] Potassium, pl 4.4 3.5 - 5.3 mmol/L [facility] Chloride 105 98 - 110 mmol/L [facility] CO2 28 20 - 32 mmol/L [facility] Calcium 9.0 8.6 - 10.4 mg/dL [facility] Protein, sr 6.7 6.1 - 8.1 g/dL [facility] Albumin 4.2 3.6 - 5.1 g/dL [facility] GLOBULIN 2.5 1.9 - 3.7 g/dL (calc) [facility] Alb/glob ratio 1.7 1.0 - 2.5 (calc) [facility] Bilirubin, total 0.3 0.2 - 1.2 mg/dL [facility] Alk phos 63 37 - 153 U/L [facility] AST 18 10 - 35 U/L [facility] ALT (SGPT) 15 6 - 29 U/L [facility] Blood 08/29/2024 10:4 7 AM CDT 08/29/2024 10:48 AM CDT Narrative [facility] - 08/30/2024 5:18 AM CDT FASTING:YES FASTING: YES Bryce Medrano MD LAB BLOOD ORDERABLES Final Re sult Performing Organization Address [facility] Co de Phone Number [facility] [address] [address] * Diabetic Eye Exam (07/09/2024) Historical Provider HEALTH MAINTENANCE Final Result * Albumin Creatinine Ratio, Urine (06/04/2024 2:28 PM CDT) Albumin Ur <12.0 mg/L Comment: Interpretive Data No reference range established. Current interpretive data was last revised 2018. Creatinine Ur 120.0 mg/dL [facility] Comment: Interpretive Data No reference range established. Current interpretive data was last revised 2018. Albumin Creatinine Ratio, Ur <10 1 - 29 mg/g [facility] Urine 06/04/2024 2:28 PM CDT 06/05/2024 12:16 PM CDT Beba Silveira LAB URINE ORDERABLES Fin al Result Performing Organization Address [facility] Co de Phone Number [facility] [address] Department [place] [address] * Diagnostic Mammogram Bilateral W Rafita (11/21/2023 11:00 AM CDT) Anatomical Region Laterality Modality Breast Bilateral Mammography 11/21/2023 11:3 0 AM CDT Narrative 11/21/2023 11:36 AM CDT EXAM DESCRIPTION: US BREAST RIGHT LIMITED; DIAGNOSTIC MAMMOGRAM BILATERAL W RAFITA REASON FOR STUDY: 58-year-old female presents for follow-up of probably benign findings in both breasts. COMPARISON: 10/02/2022, 01/18/2022, 07/15/2021, 06/14/2021, 02/18/2019 TECHNIQUE: Full field CC and MLO views of the bilateral breasts were obtained with digital technique using breast tomosynthesis with C view. Full field LM view and spot magnification CC and LM views of the left breast were obtained with 2D digital technique. FINDINGS: DENSITY: The breasts are almost entirely fatty. MAMMOGRAM FINDINGS: The probably benign 5 mm oval circumscribed mass at approximately the 5 o'clock position of the right breast, anterior depth, has not suspiciously changed since June 2021, evidence of a benign etiology based on documented stability of 2 years. Loosely grouped punctate and coarse calcifications altogether measuring approximately 10 mm at the 3-4 o'clock position of the left breast, posterior depth, have also not suspiciously changed for 2 years, evidence of a benign etiology. Multiple benign scattered calcifications in both breasts are also unchanged. There is no new suspicious finding in either breast on mammogram. ULTRASOUND FINDINGS: Targeted ultrasound of the right breast at 5 o'clock, 4 cm from the nipple demonstrates a 3 x 2 x 4 mm oval circumscribed mass with mixed hypoechoic and anechoic internal echotexture, parallel orientation, no posterior acoustic shadowing or enhancement, and no evidence of internal blood flow on color Doppler. This mass has not suspiciously changed in size or appearance since July 2021, at which time it measured 4 x 2 x 3 mm. IMPRESSION: 1. The probably benign mass at the 5 o'clock position of the right breast (4 cm from the nipple) has not suspiciously changed for 2 years, evidence of a benign etiology. 2. The probably benign group of calcifications at the 3-4 o'clock position of the left breast, posterior depth, has not suspiciously changed for 2 years, evidence of a benign etiology. 3. No new suspicious finding in either breast on mammogram. Screening mammography in 1 year is recommended. BIRADS 2 - Benign findings. The patient was notified of these findings and recommendations at the time of the examination. THIS IS AN ELECTRONICALLY VERIFIED FINAL REPORT 11/21/2023 11:36 AM - Electronically signed by Eduar Quintero M.D., MD: Report ID: [id number] Reading Location: MAMME Bryce Medrano MD IMG MAMMO PROCEDURES Final Re sult * Colonoscopy (08/26/2004) Anatomical Region Laterality Modality Other Historical Provider ENDOSCOPY PROCEDURES Chana l Result from Last 3 Months or Most Recently Relevant to Health Maintenance Additional Health Concerns Infection Onset Date Last Indicated C. difficile Comment:201605/04/2016 05/02/[address] [place] [address] [place] [address] [facility]ALTHCARE [facility] Care Teams Plateman Relationship Specialty Start Date End Date Bryce Medrano MD [address] [facility] [address] [place] [address] PCP - General Family Medicine 08/01/18 Jeremy Slater MD [address] [facility] [address] [place] [address] Consulting Physician Transplant 12/02/24 Bertha Bailey, RN [address] [facility] [address] [place] [address] Heart Failure Coordinator Transplant 12/02/24 Bing Ozuna RN Heart Failure Coordinator Transplant 12/02/24 Eliot Sparks Primary Scene Painter Transplant 02/18/25
--- OUTSIDE RECORDS SUMMARY | 2025-02-28 15:57 | XMS_ITS | Encounter Summary ---
Author Organization [facility] Address [address] [place] [address] Phone Care Team Providers Care Senior Process Control Tech Name Role Phone Bryce Medrano MD Primary Care Provider [phone] Jeremy Slater MD Unavailable Bertha Bailey RN Unavailable Bing Ozuna RN Unavailable [phone] Eliot Sparks Unavailable Unavailable Encounter Details Date Type Department Care Team (Late st Contact Info) Description 02/20/2025 Results Follow-Up [facility] Medicine Cardiology [address] [facility] [address] 8th [place] [address] [place] [id number] Elise Art NP [address] [facility] [address] [place] [address] Lipoprotein a (LPa) Social History Tobacco Use Types Packs/Day Years Used Date Smoking Tobacco: Former Cigarettes 1 40 Vaping Smokeless Tobacco: Never Alcohol Use Standard Drinks/Week Comments Not Currently [...] on file Legal Sex Female 12:30 PM FELTMAKER AND WEIGHER Gender Identity Not on file Sexual Orientation Not on file documented as of this encounter Plan of Treatment Not on file documented as of this encounter Visit Diagnoses Not on filedocumented in this encounter Additional Health Concerns Infection Onset Date Last Indicated Resolved Time C. difficile Comment:201605/04/2016 05/02/2016 documented as of this encounter Care Teams Senior Process Control Tech Relationship Specialty Start Date End Date Bryce Medrano MD [address] [facility] [address] [place] [address] PCP - General Family Medicine 08/01/18 Jeremy Slater MD [address] [facility] [address] [place] [address] Consulting Physician Transplant 12/02/24 Bertha Bailey, RN [address] [facility] [address] [place] [address] Heart Failure Coordinator Transplant 12/02/24 Bing Ozuna, VEGA Heart Failure Coordinator Transplant 12/02/24 Eliot Sparks Primary Interior Decorator Painting Transplant 02/18/25 documented as of this encounter
--- OUTSIDE RECORDS SUMMARY | 2025-02-28 15:57 | XMS_ITS | Clinical Summary ---
Author Organization [facility] Address [address] [place] [address] Phone Care Team Providers Care Director News Name Role Phone Bryce Medrano MD Primary Care Provider [phone] Allergies No known active allergies Medications No known medications Social History Tobacco Use Types Packs/Day Years Used Date Smoking Tobacco: Every Day Cigarettes Smokeless Tobacco: Never Alcohol Use Standard Drinks/Week Comments No 0 (1 standard drink = 0.6 oz pur e alcohol) Comments Unknown Sex and Gender Information Value Date Recorded Sex Assigned at Not on file Legal Sex Female 11:15 PM CDT Gender Identity Not on file Sexual Orientation Not on file Last Filed Vital Signs Vital Sign Reading Time Taken Comments Blood Pressure 99/55 10/25/2022 8:26 PM CDT Pulse 59 04/03/2018 10:05 PM [employer] Temperature 36.7 C (98 F) 10/25/2022 8:26 PM CDT Respiratory Rate 26 10/25/2022 8:26 PM CDT Oxygen Saturation 90% 10/25/2022 8:26 PM CDT Inhaled Oxygen Concentration - - Weight 108.9 kg (240 lb) 10/25/2022 8:26 PM CDT Height 166.4 cm (5' 5.5) 10/25/2022 8:26 PM CDT Body Mass Index 39.33 10/25/2022 8:26 PM CDT Plan of Treatment Health Maintenance Due Date Last Done Comments DIABETES ANNUAL RETINAL EXAM 1984 DIABETES MICROALBUMIN ANNUAL SCREEN 1984 LDL CHOLESTEROL ANNUAL 1984 DTAP/TDAP/TD VACCINES (1 - Tdap) 1985 HEPATITIS B VACCINES (1 of 3 - 19+ 3-dose series) 1985 COLORECTAL SCREENING 05/31/2011 Colorectal Cancer Screening 05/31/2011 FIT-DNA Q 3 years 05/31/2011 FIT/FOBT Q 1 year 05/31/2011 Flex Sig/CT Colonography Q 5 years 05/31/2011 ZOSTER VACCINE (1 of 2) 2016 DIABETES HBA1C Q 6 MONTHS 01/07/2023 07/07/2022 DIABETES ANNUAL FOOT EXAM 07/11/2023 07/10/2022 BREAST CANCER SCREENING 10/03/2023 10/03/19 23, 01/18/2022, 07/15/2021, Additional history exists INFLUENZA VACCINE (#1) 2024 2, 12/08/2020, 11/28/2019, Additional history exists Insurance MEDICARE PART A AND B [employer] OPEN ACCESS Care Teams Director News Relationship Specialty Start Date End Date rByce Medrano MD PCP - General Family Practice 04/03/18
[2025-02-28 16:30] VITALS: BP 121/78; PULSE 87; RESP 18; O2SAT 91
[2025-02-28] MEDS: MORPHINE SULFATE (*CRX) 4 MG/ML INJ IV PUSH (16:31)
[2025-02-28 17:00] VITALS: BP 108/70; PULSE 83; RESP 16; O2SAT 90
[2025-02-28] MEDS: KETOROLAC 30 MG/ML VIAL (*BKC) IV PUSH (17:17)
[2025-02-28] MEDS: SODIUM CHLORIDE 0.9% IV 1,000 ML 999 ML IV CONT (17:17)
[2025-02-28 17:30] VITALS: BP 105/55; PULSE 79; RESP 14; O2SAT 92
--- NOTE | 2025-02-28 17:31 | ECG_ITS ---
Test Date: 2025-02-28 17:38:41 Measurements Intervals [place] Rate: 79 P: 72 MT: 158 QRS: -37 QRSD: 105 T: 69 QT: 391 QTc: 450 Interpretive Statements SINUS RHYTHM LEFT AXIS DEVIATION DELAYED PRECORDIAL R/S TRANSITION LOW QRS VOLTAGE IN PRECORDIAL LEADS MINIMAL Q WAVES- HIGH LATERAL LEADS NONSPECIFIC ST-T WAVE ABNORMALITY- HIGH LATERAL LEADS BASELINE ARTIFACT- I, III, AVR, AVL, AVF BORDERLINE ECG Compared to ECG 02/28/2025 14:19:22 NO SIGNIFICANT CHANGE Electronically Signed On 02-28-2025 21:59:16 SLOT SHIFT SUPERVISOR by Fer Schrader D.O.
[2025-02-28 18:13] LABS: Troponin I < 0.012 ng/mL (0.000-0.034)
[2025-02-28 18:50] LABS: Add Urine Microscopic? YES; Appearance Urine Cloudy (Clear); Glucose Urine UA 3+ mg/dL (Negative); Leukocyte Esterase Ur Negative LEU/UL (Negative); Nitrate Urine Negative (Negative); Non Pathogenic Casts 0-2; Specific Grav Ur 1.037 (1.001-1.035)
== END 2025-02-28 19:22 | disposition home or self-care (01) ==
PROVIDERS: Emergency Medicine; Emergency Provider Emergency Medicine; PCP Family Medicine
DX: R10.A2 Flank pain, left side (principal); N13.30 Unspecified hydronephrosis; R07.9 Chest pain, unspecified; Z87.442 Personal history of urinary calculi; M51.379 Other intervertebral disc degeneration, lumbosacral region without mention of lumbar back pain or lower extremity pain; R94.31 Abnormal electrocardiogram [ECG] [EKG]; I51.7 Cardiomegaly
CPT/HCPCS: 36415; 71046; 71275; 74174; 74176; 80053; 81001; 83690; 84484; 85025; 85610; 85730; 93005; 96361; 96374; 96375; 99284; J1885; J2270; J7030; Q9967